=== PATIENT | female | born 1990 | race Caucasian/White ===

== ENCOUNTER 2025-02-04 04:47 | Inpatient (IN) | payer SELFPAY ==
[2025-02-04] MEDS ORDERED: Misoprostol 200 MCG Tab RECTAL PRN (05:08)
[2025-02-04] MEDS ORDERED: Sodium Chloride 0.9% 10 ML Syringe FLUSH PRN (05:08)
[2025-02-04] MEDS ORDERED: Carboprost Tromethamine 250 MCG/1 mL Vial IM PRN (05:08)
[2025-02-04] MEDS ORDERED: Water For Irrigation,Sterile 1,000 ML Container IRR PRN (05:08)
[2025-02-04] MEDS ORDERED: Sodium Chloride 0.9% 20 ML SDV IV PRN (05:08)
[2025-02-04] MEDS ORDERED: Misoprostol 200 MCG Tab PO PRN (05:08)
[2025-02-04] MEDS ORDERED: Sodium Chloride 0.9% 2.5 ML Syringe FLUSH PRN (05:08)
[2025-02-04] MEDS ORDERED: Methylergonovine 0.2 MG/1 ML Amp IM PRN (05:08)
[2025-02-04] MEDS ORDERED: Butorphanol 1 MG/ML SDV IVPUSH PRN (05:08)
[2025-02-04] MEDS ORDERED: Ondansetron 4 MG/2 ML SDV IVPUSH PRN (05:08)
[2025-02-04] MEDS ORDERED: Lidocaine 1% 50 ML MDV INJECT PRN (05:08)
[2025-02-04] MEDS ORDERED: Tranexamic Acid in NACL,ISO-OS 1,000 MG in Premix Bag 1 BAG IV PRN (05:14)
[2025-02-04 06:09] LABS: HEMOGLOBIN 13.3 g/dL (12.0-16.0); MEAN CORPUSCULAR HEMOGLOBIN 30.3 pg (28.0-32.0); MEAN CORPUSCULAR VOLUME 86.6 fL (83.0-99.0); MEAN PLATELET VOLUME 11.6 fL (9.4-12.3); PLATELET COUNT,PLT 184 K/uL (150-400); RED BLOOD CELL COUNT 4.39 M/uL (4.10-5.30); WHITE BLOOD CELL COUNT,WBC 11.08 K/uL (3.9-11.3)
[2025-02-04] MEDS ORDERED: Phenylephrine HCl In 0.9% NaCl 1 MG/10 ML Syringe IVPUSH PRN (07:11)
[2025-02-04] MEDS ORDERED: ePHEDrine 50 MG/ML SDV IVPUSH PRN (07:11)
[2025-02-04] MEDS ORDERED: dexmedeTOMIDine HCl 200 MCG/2 ML SDV EPIDUR SCH (07:15)
[2025-02-04] MEDS: Lactated Ringers 1,000 ML IV SCH (08:44)
[2025-02-04] MEDS: Ropivacaine HCl/PF 400 MG in Premix Bag 1 BAG EPIDUR SCH (09:02)
[2025-02-04 10:13] LABS: A/G RATIO 0.8 (0.9-1.6); ALBUMIN 2.7 g/dL (3.4-5.0); BILIRUBIN TOTAL 0.5 mg/dL (0.2-1.0); CALCIUM 8.4 mg/dL (8.5-10.1); CARBON DIOXIDE,CO2 19.7 mmol/L (21.0-32.0); CREATININE 0.7 mg/dL (0.6-1.0); EST CRCL DRUG DOSING (CG) 108.01 mL/min; POTASSIUM,K 4.3 mmol/L (3.5-5.1); PROTEIN TOTAL,TP 6.2 g/dL (6.4-8.2); URIC ACID 5.6 mg/dL (2.6-7.2)
[2025-02-04] MEDS: Oxytocin/0.9 % Sodium Chloride 30 UNIT/500 ML BAG IV SCH (15:09)
[2025-02-04 15:47] LABS: CREATININE,URINE RAND 126.8 mg/dL; PROTEIN CREATININE RATIO,URINE 0.5; PROTEIN,URINE RANDOM 63.3 mg/dL (<11.9)
[2025-02-04] MEDS ORDERED: Lanolin 100% Cream 7 GM Tube TOP PRN (16:42)
[2025-02-04] MEDS ORDERED: Aluminum Hydroxide/Magnesium Hydroxide/Simethicone Susp 30 ML Cup PO PRN (16:42)
[2025-02-04] MEDS ORDERED: Simethicone 80 MG Tab.Chew PO PRN (16:42)
[2025-02-04] MEDS ORDERED: Benzocaine/Menthol 20%-0.5% Spray 78 GM Cannister TOP PRN (16:42)
[2025-02-04] MEDS ORDERED: Witch Hazel Medicated Pads 40/Jar TOP PRN (16:42)
[2025-02-04] MEDS ORDERED: Docusate Sodium 100 MG Cap PO PRN (16:42)
[2025-02-04 17:04] LABS: PH,UMBILICAL ARTERIAL 7.23 (7.18-7.38); PH,UMBILICAL VENOUS 7.33 (7.25-7.45)
[2025-02-04] MEDS: Acetaminophen 500 MG Tab PO PRN (20:09)
[2025-02-05] MEDS: Ibuprofen 800 MG Tab PO PRN (03:59)
[2025-02-05 05:39] LABS: BASOPHILS ABSOLUTE AUTO 0.04 K/uL (0.00-0.20); BASOPHILS PERCENT AUTO 0.2 % (0.0-1.0); EOSINOPHILS ABSOLUTE AUTO 0.09 K/uL (0.00-0.45); EOSINOPHILS PERCENT AUTO 0.5 % (0.0-6.0); HEMATOCRIT 34.1 % (37.0-47.0); HEMOGLOBIN 11.5 g/dL (12.0-16.0); IMMATURE GRAN PERCENT AUTO 0.5 % (0.0-0.4); LYMPHOCYTES ABSOLUTE AUTO 1.64 K/uL (1.00-4.80); LYMPHOCYTES PERCENT AUTO 8.7 % (24.0-44.0); MEAN CORPUSCULAR HEMOGLOBIN 30.2 pg (28.0-32.0); MEAN CORPUSCULAR HGB CONC 33.7 g/dL (32.0-36.0); MEAN CORPUSCULAR VOLUME 89.5 fL (83.0-99.0); MEAN PLATELET VOLUME 11.3 fL (9.4-12.3); MONOCYTES ABSOLUTE AUTO 1.07 K/uL (0.00-0.80); MONOCYTES PERCENT AUTO 5.7 % (0.0-8.0); NEUTROPHILS ABSOLUTE AUTO 15.97 K/uL (1.80-7.70); NEUTROPHILS PERCENT AUTO 84.4 % (41.0-71.0); PLATELET COUNT,PLT 150 K/uL (150-400); RED BLOOD CELL COUNT 3.81 M/uL (4.10-5.30); WHITE BLOOD CELL COUNT,WBC 18.91 K/uL (3.9-11.3)
[2025-02-05 13:46] LABS: A/G RATIO 0.7 (0.9-1.6); ALBUMIN 2.2 g/dL (3.4-5.0); BILIRUBIN TOTAL 0.5 mg/dL (0.2-1.0); CALCIUM 8.1 mg/dL (8.5-10.1); CARBON DIOXIDE,CO2 23.8 mmol/L (21.0-32.0); CREATININE 0.8 mg/dL (0.6-1.0); EST CRCL DRUG DOSING (CG) 94.51 mL/min; POTASSIUM,K 4.3 mmol/L (3.5-5.1); PROTEIN TOTAL,TP 5.5 g/dL (6.4-8.2)
== END 2025-02-05 18:30 | disposition home or self-care (01) | DRG 807 ==
LOC: MW.OBCHECK 04:47 → MW.OB 04:49 → MW.OBCHECK 05:08 → OBSVTOIN 15:07 → MW.OB 19:14
PROVIDERS: ADMIT Obstetrics & Gynecology; ATTEND Obstetrics & Gynecology
PROC: 10E0XZZ Delivery of Products of Conception, External Approach (ICD-10-PCS; principal; 2025-02-04)
PROC: 3E0R3BZ Introduction of Anesthetic Agent into Spinal Canal, Percutaneous Approach (ICD-10-PCS; 2025-02-04)
PROC: 0HQ9XZZ Repair Perineum Skin, External Approach (ICD-10-PCS; 2025-02-04)
DX: O70.0 First degree perineal laceration during delivery (principal); Z37.0 Single live birth; Z3A.39 39 weeks gestation of pregnancy; Z98.890 Other specified postprocedural states
CPT/HCPCS: 01967; 36415; 51702; 59025; 59409; 80053; 82570; 82803; 83615; 84156; 84550; 85025; 85027; 86592; 86850; 86900; 86901; A9270-GY; J2590; J2795; J7120